=== PATIENT | female | born 1980 | race Two or more races ===

== ENCOUNTER 2017-01-06 19:46 | Emergency (ER) | payer MEDICAID ==
[~2017-01-06] VITALS: Ht 162.6 cm; Wt 81.6 kg
[~2017-01-06 19:46] MED LIST: TOPI100T29 PO; TRAM-297 PO
[2017-01-06 20:28] LABS: Basophils # (auto) 0.1 uL; Basophils % (auto) 0.7 % (0.0-2.0); CONDITION Y; Eosinophils # (auto) 0.2 uL; Eosinophils % (auto) 2.4 % (0.0-7.0); Hematocrit 40.2 % (36.0-46.0); Hemoglobin 13.6 g/dL (12.2-16.2); Lymphocytes # (auto) 2.5 uL; Lymphocytes % (auto) 31.8 % (10.0-50.0); Mean Corpuscular Hemoglobin 31.9 pg (28.0-32.0); Mean Corpuscular Hgb Conc. 33.8 g/dL (32.0-36.0); Mean Corpuscular Volume 94.2 fL (80.0-100.0); Mean Platelet Volume 8.6 fL (7.4-10.4); Monocytes # (auto) 0.6 uL; Neutrophils # (auto) 4.6 uL; Neutrophils % (auto) 58.1 % (37.0-80.0); Platelet Count (auto) 299 10^3/uL (140-450); Red Cell Distribution Width 13.6 % (11.6-16.0)
[2017-01-06 20:47] LABS: Albumin 3.6 g/dL (3.4-5.0); Alkaline Phosphatase 159 U/L (45-117); Anion Gap 7 (5-15); Aspartate Aminotransferase 83 U/L (15-37); BUN/Creatinine Ratio 14.9; Bilirubin, Total 0.4 mg/dL (0.2-1.0); Blood Urea Nitrogen 13 mg/dL (7-18); Calcium 11.2 mg/dL (8.5-10.1); Carbon Dioxide 22 mmol/L (21-32); Chloride 110 mmol/L (98-107); GFR African American 96 mL/min; GFR Non-African American 79 mL/min; Glucose 102 mg/dL (74-106); Magnesium 2.1 mg/dL (1.6-2.6); Potassium 3.7 mmol/L (3.5-5.1); Sodium 139 mmol/L (136-145); Total Protein 6.8 g/dL (6.4-8.2)
[2017-01-07 02:57] LABS: Amylase 56 U/L (25-115)
[2017-01-07 03:21] LABS: B-Type Natriuretic Peptide 17.44 pg/mL (0-100)
[2017-01-07 03:39] LABS: Temperature: 21.3 C (20.0-25.0)
[2017-01-07 03:42] LABS: Urine Bilirubin Negative (Negative); Urine Blood Negative /uL (Negative); Urine Color Yellow (Yellow); Urine Glucose Normal (Normal); Urine Ketone Negative (Negative); Urine Mucus FEW (None Seen); Urine Nitrite Negative (Negative); Urine RBC 6 /hpf (0 - 4); Urine Squamous Epithelial Cell MOD /hpf (<5); Urine Urobilinogen Normal (Negative); Urine pH 5.5 (5.0-8.0)
[2017-01-07] MEDS ORDERED: ONDANSETRON HCL 4 MG/2 ML VIAL IV ONE (03:45)
[2017-01-07] MEDS ORDERED: MORPHINE SULFATE 4 MG/ML SYRG IV ONE (03:45)
[2017-01-07 04:15] LABS: INR 0.98 (0.9-1.15)
[2017-01-07 04:45] VITALS: BP 104/64
[2017-01-08] MEDS ORDERED: LORazepam 2MG/ML-1ML VIAL ONE (12:09)
== END 2017-01-07 05:13 | disposition home or self-care (01) ==
LOC: ER 19:51
DX: R07.89 Other chest pain (principal); G43.909 Migraine, unspecified, not intractable, without status migrainosus; K72.90 Hepatic failure, unspecified without coma; F17.210 Nicotine dependence, cigarettes, uncomplicated
CPT/HCPCS: 36415; 71010; 80053; 80307; 81001; 82150; 83690; 83735; 83880; 84484; 84702; 85025; 85379; 85610; 85730; 96374; 96375; 99285; J2270; J2405